=== PATIENT | female | born 1960 | race Caucasian/White ===

== ENCOUNTER 2020-06-03 15:46 | Outpatient (CLI) | payer BC, SELFPAY ==
--- NOTE | 2020-06-03 | CT_ITS ---
WS: [id number] CT ABDOMEN AND PELVIS NONCONTRAST HISTORY: CALCULUS OF KIDNEY TECHNIQUE: Imaging performed through the abdomen and pelvis. Coronal and sagittal reformats are submi tted. All CT scans at [facility] use at least one of these dose optimization techniques: automated exposure control; mA and/or kV adjustment per patient size (includes targeted exams where d ose is matched to clinical indication); or iterative reconstruction. DLP: 1057.9 mGycm COMPARISON: 04/24/2018 Lower thorax: Lung bases are clear. No hiatal hernia. Liver: Normal, no mass or intrahepatic dilatation. Gallbladder: Unremarkable. Pancreas: Normal. Spleen: Normal. Adrenal glands: Normal. Right kidney: No renal obstruction. Several small calcifications within the renal pelvis. The largest in the mid pelvis measures 4 mm. There is no obstruction. RIGHT ureter is normal caliber. Left kidney: Nonobstructing calcifications in the LEFT kidney. 2 adjacent calcifications in the lower pole with a maximum diameter of 5 mm. No ureteral calcification. Mild atherosclerosis with no aneurysm. No free fluid, intraperitoneal air or significant lymphadenopathy. GI tract: Normal appendix. No GI tract obstruction. Again noted is the increased soft tissue mass in the cecum which is nearly isodense to the adjacent colon content. This soft tissue mass has decreased in size of 6.1 to 2.7 cm. There is decrease in size this is probably retained, inspissated fecal mat erial. Abdominal wall: Fat-containing umbilical hernia. Pelvis: Prior hysterectomy. No free fluid or adenopathy. Urinary bladder is not distended. Osseous structures: Degenerative disc disease is moderate at L4-5 and L5-S1. CT/CT kidney stone [id number] IMPRESSION: 1. No renal obstruction or ureteral obstruction. 2. Nonobstructing, bilateral, subcentimeter nephrolithiasis. 3. Normal appendix. 4. Decrease in size of increased soft tissue in the cecum which is probably in spissated fecal material. Decrease in size since 04/24/2018. 5. Mild atherosclerosis aorta.
== END 2020-06-03 15:47 | disposition home or self-care (01) ==
LOC: RADWPI 15:50
PROVIDERS: Family Provider Family Medicine; PCP Family Medicine; Visit Provider Family Medicine
DX: N20.0 Calculus of kidney (principal); I70.0 Atherosclerosis of aorta
CPT/HCPCS: 74176

== ENCOUNTER 2020-06-15 12:13 | Outpatient (CLI) | payer BC, SELFPAY ==
--- NOTE | 2020-06-15 12:30 | XRR_ITS ---
PROCEDURE INFORMATION: Exam: XR Abdomen, 1 View Exam date and time: 06/15/2020 12:29 PM Age: 60 years old Clinical indication: Condition or disease; Other: Stones; Prior surgery; Surgery type: Histo, c section x 2 TECHNIQUE: Imaging protocol: XR of the abdomen. Views: Frontal supine view of the abdomen. 1 View. COMPARISON: CT kidney stone [id number] 06/03/2020 4:05 PM FINDINGS: Gastrointestinal tract: Unremarkable. No bowel dilation. Organs: Small bilateral renal caliceal calculi, largest on the right measuring 4.8 mm (4.6 mm previously). Bones/joints: Bilateral lower lumbar facet primary osteoarthritis. XR/XR KUB [id number] IMPRESSION: Bilateral renal calyceal lithiasis.
== END 2020-06-15 12:14 | disposition home or self-care (01) ==
LOC: RAD 12:15
PROVIDERS: PCP Family Medicine; Visit Provider Nurse Practitioner Family
DX: N20.0 Calculus of kidney (principal)
CPT/HCPCS: 74018; 81001

== ENCOUNTER → 2020-12-30 15:48 | Outpatient (BNVA) | payer OTHER, SELFPAY | PROVIDERS: PCP Family Medicine; Visit Provider Specialist | DX: M65.30 Trigger finger, unspecified finger (principal); M19.041 Primary osteoarthritis, right hand | CPT/HCPCS: 73140 ==

== ENCOUNTER → 2021-01-04 13:56 | Outpatient (BNVA) | payer OTHER, SELFPAY | PROVIDERS: PCP Family Medicine; Visit Provider Specialist | DX: Z01.818 Encounter for other preprocedural examination (principal); M65.30 Trigger finger, unspecified finger | CPT/HCPCS: 87635 ==

== ENCOUNTER → 2021-01-18 13:35 | Outpatient (BNVA) | payer OTHER, SELFPAY | PROVIDERS: PCP Family Medicine; Visit Provider Specialist | DX: Z01.812 Encounter for preprocedural laboratory examination (principal); M65.351 Trigger finger, right little finger | CPT/HCPCS: 87635 ==

== ENCOUNTER 2021-01-22 06:18 | Day surgery (SDC) | payer OTHER, SELFPAY ==
[2021-01-22] VITALS (7 sets, daily range): BP systolic 123–153; BP diastolic 67–86; PULSE 71–85; RESP 14–19; TEMP 36.3–36.4; O2SAT 78–97
--- NOTE | 2021-01-22 07:09 | P.HPUD_ITS ---
Surgery/Procedure H&P Update DATE OF PROCEDURE: January 22, 2021 DATE H&P PERFORMED: 12/30/20 H&P UPDATE INFORMATION: I have reviewed H&P completed within last 30 days, I have examined patient prior to procedure, No changes to prior documentation and H&P is in [facility] EMR on date indicated PREOP DIAGNOSIS: Trigger finger right small finger PLANNED PROCEDURE: Operation Date: 01/22/21 08:05 Proposed Procedures p Little Trigger Finger Release Right 27547 M65.30(Right) - Sophie Flanagan MD Related Problem List Diagnoses (1) Trigger finger, right little finger:
[2021-01-22] MEDS: acetaminophen 1,000 MG/100 ML PIGGYBACK 400 MG IV (07:30)
--- NOTE | 2021-01-22 07:35 | ANES.PREANE2 ---
Pre-Anesthetic Assessment Pre-Anesthetic Assessment: Height/Weight: Height 1.6 m Weight 71.214 kg Temp Pulse Resp BP Pulse Ox 97.4 F L 85 18 149/86 97 01/22/21 06:46 01/22/21 06:46 01/22/21 06:46 01/22/21 06:46 01/22/21 06:46 Preop Diagnosis: Trigger finger right small finger Proposed Procedure: Operation Date: 01/22/21 08:05 Proposed Procedures p Little Trigger Finger Release Right 27738 M65.30(Right) - Sophie Flanagan MD Was Beta Debra taken within 24 hours: N/A Was Clonidine taken within 24 hours: N/A Last intake: Intake Last Liquid Date 01/22/21 Last Liquid Time 00:00 Last Solid Date 01/21/21 Last Solid Time 18:00 Social: Social History: No alcohol and No tobacco Exam: Pre-Anes Outpt Exam: alert, oriented x 3, clear to auscultation bilaterally and regular rate & rhythm Airway: Submandibular: WNL Cervical ROM: WNL MP: 2 Dentition: Full Pulmonary: Pulmonary: Asthma Musc/skel: Musc/skel: Lower Back Pain Neuropsych: Neuropsych: Anxiety and Depression Anesthetic Plan: ASA status: 3 Anesthesia: MAC and Regional (specify below) (Bronson villatoro) Risk of > 500 ml blood loss (7ml/kg in children): No PFSH Anesthesia PFSH: Medical History (Updated 01/01/21 @ 14:29 by Sophie Flanagan MD) Asthma Bilateral kidney stones Hypertension Surgical History H/O section H/O hand surgery H/O: hysterectomy History of back surgery S/P removal of ovarian cyst S/P tonsillectomy Family History Mother , 59 CAD (coronary artery disease) Brother Cancer Kidney cancer Father , 71 Cancer Prostate Social History Smoking and tobacco status: never smoked Alcohol intake: current Alcohol intake frequency: holidays/special occasions only Marital status: Current occupational status: retired Data Anesthesia Cardiac Studies: No Data to Display
[2021-01-22] MEDS: CELEcoxib 200 mg Capsule 400 MG PO (07:36)
[2021-01-22] MEDS: sodium chloride 0.9% 1,000 ML 30 ML IV (07:36)
--- NOTE | 2021-01-22 08:59 | PM.OP ---
Operative Report Date of procedure: January 22, 2021 Pre-op Diagnosis: Trigger finger right small finger Post-op diagnosis: same Post-op Findings: Triggering right small finger Procedure Done: Right Small finger trigger release Pathology: none sent Surgeon: Sophie Flanagan Anesthesia: MAC (With Bronson block) Estimated blood loss (mL): 2 Tourniquet time (min): 30 Tourniquet time: 250 mmHg IV fluids (mL): 500 Urine output (mL): 0 Urine output: No Connell Complications: None Findings: Triggering of the right small finger Condition: stable Disposition: PACU (Then same-day surgery and home) Brief History: This 60-year-old woman presented with complaints of right small finger triggering. She previously had her right ring finger triggering release. She did well from this and wished to proceed with operative intervention regarding the small finger. Risks and complications were discussed with the patient. Consents were signed. Questions were answered. Procedure: Patient was brought to the operating theater. She was placed on the operating room table. A [place] block was administered without difficulty. Patient tolerated it well. Ancef 2 g was administered. A tourniquet was placed high on the arm and was elevated for the [place] block. This followed exsanguination of the arm. Tourniquet time was 30 minutes at 250 mmHg. Surgical pause was performed prior to commencement of the surgical procedure. At the time of the surgical pause we identified the site and side of surgery. We also identified the patient's identity and appropriate administration of IV antibiotics. Following the surgical pause, an incision was made along the distal palmar crease beneath the small finger. Dissection continued through the skin to the subcutaneous tissues using a scalpel. Blunt dissection was then utilized to spread soft tissues and allow access to the A1 get. The A1 get was identified. It was then incised longitudinally and sharply using a knife. This was accomplished without difficulty and atraumatically. Once the A1 get was released, tendons were brought up out of the wound and evaluated. There were no gross masses on the tendon, but there was evidence of trauma from the triggering. Tendons were returned to normal position. We then irrigated the wound and subsequently closed it with 3-0 nylon with an interrupted mattress type suture. Following closure of the wound, the wound was injected with bupivacaine into the subcutaneous tissues as a local anesthetic. Sterile dressing was then placed consisting of OpSite, fluffed fluffs, sterile soft roll, and an Maikel wrap. The patient was returned to recovery in satisfactory condition. She will be discharged home to follow-up with me in the office. There were no complications and no specimens. Associated Problem List Diagnoses (1) Trigger finger, right little finger:
--- NOTE | 2021-01-22 13:06 | ANE.PACU2 ---
Inpatient post-anesthesia follow up: Airway intact: Yes Vital signs: Temperature 97.6 F Pulse Rate 75 Respiratory Rate 18 Blood Pressure 143/72 Pulse Oximetry 78 Oxygen Delivery Me thod Room Air Oxygen Flow Rate Fraction of Inspir ed Oxygen Hydration adequate: Yes Nausea and vomiting: No Pain level: 1 Mental status: Baseline
== END 2021-01-22 10:10 | disposition home or self-care (01) ==
PROVIDERS: PCP Family Medicine; Visit Provider Specialist
PROC: (CPT 26055; principal; 2021-01-22 08:05)
DX: M65.351 Trigger finger, right little finger (principal); J45.909 Unspecified asthma, uncomplicated; F41.9 Anxiety disorder, unspecified; F32.9 Major depressive disorder, single episode, unspecified
CPT/HCPCS: 26055; 96365; J0690; J2250; J2704; J3010; J3490; J7030

== ENCOUNTER 2023-03-15 13:02 | Outpatient (CLI) | payer BC, MEDICAID, SELFPAY ==
--- NOTE | 2023-03-15 13:21 | MM_ITS ---
WS: [id number] BILATERAL 3D TOMOSYNTHESIS DIGITAL SCREENING MAMMOGRAPHY WITH CAD CLINICAL INFORMATION: SCREENING HISTORY: Screening mammogram. No current complaints. COMPARISON: None available TECHNIQUE: Bilateral CC and MLO views. FINDINGS: Scattered fibroglandular densities bilaterally. Slightly spiculated asymmetric density upper outer RI GHT breast measuring 1.4 CM. Recommend RIGHT breast diagnostic mammography with spot compression view s and ultrasound for further evaluation. Benign calcification RIGHT breast. LEFT breast is unremarkable. MM/[place] [id number] IMPRESSION: BI-RADS: 0-Incomplete: Need additional imaging evaluation FOLLOW UP: Need Additional Imaging Recommend RIGHT breast diagnostic mammography with spot compression views and u ltrasound for further evaluation.
== END 2023-03-15 13:03 | disposition home or self-care (01) ==
PROVIDERS: PCP Family Medicine; Visit Provider Family Medicine
DX: Z12.31 Encounter for screening mammogram for malignant neoplasm of breast (principal)
CPT/HCPCS: 77063; 77067

== ENCOUNTER 2023-04-06 12:53 | Outpatient (CLI) | payer BC, MEDICAID, SELFPAY ==
--- NOTE | 2023-04-06 13:10 | MM_ITS ---
WS: [id number] RIGHT 3D TOMOSYNTHESIS DIGITAL MAMMOGRAPHY WITH CAD CLINICAL INFORMATION: ABNORMAL MAMMO HISTORY: Additional views COMPARISON: March 15, 2023 TECHNIQUE: 3 views of the right breast were obtained. FINDINGS: Scattered fibroglandular densities of the right breast. Persistent slightly spiculated asymmetric den sity upper outer RIGHT breast measuring 1.4 CM. This partially compresses out on the spot compression views. Ultrasound is pending. ULTRASOUND BREAST RIGHT TECHNIQUE: Ultrasound right breast focused area of concern. CLINICAL INFORMATION: ABNORMAL MAMMO FINDINGS: Ultrasound RIGHT breast upper-outer quadrant. At the 10:00 position 2 cm from the nipple is a tiny ov oid slightly elongated hypoechoic lesion which may represent a lymph node measuring 7 x 5 x 2 mm. Thi s is probably benign and recommend 6 month follow-up RIGHT diagnostic mammography and ultrasound to c onfirm stability. No other suspicious findings. MM/[place] [id number] IMPRESSION: BI-RADS: 3-Probably Benign FOLLOW UP: 6 Month Follow-up Recommend 6 month follow-up RIGHT diagnostic mammography and ultrasound.
== END 2023-04-06 12:54 | disposition home or self-care (01) ==
PROVIDERS: PCP Family Medicine; Visit Provider Family Medicine
DX: R92.8 Other abnormal and inconclusive findings on diagnostic imaging of breast (principal)
CPT/HCPCS: 76642; 77061; G0279

== ENCOUNTER 2023-12-04 14:34 | Outpatient (CLI) | payer MEDICARE, MEDICAID, SELFPAY ==
--- NOTE | 2023-12-04 14:37 | MM_ITS ---
WS: [id number] RIGHT 3D TOMOSYNTHESIS DIGITAL MAMMOGRAPHY WITH CAD CLINICAL INFORMATION: SCREENING HISTORY: 6-month follow-up COMPARISON: 04/06/2023 TECHNIQUE: 3 views of the right breast were obtained. FINDINGS: Scattered fibroglandular densities of the right breast. Dystrophic calcification anterior RIGHT breas t. Dense parenchymal tissue upper outer RIGHT breast is unchanged in appearance. No other significant changes. Ultrasound is pending. ULTRASOUND BREAST RIGHT TECHNIQUE: Ultrasound right breast focused area of concern. CLINICAL INFORMATION: 6-month follow-up FINDINGS: Ultrasound RIGHT breast at the 10 o'clock position 2 cm from the nipple. There is a described ovoid l esion likely representing a small lymph node is unchanged in appearance measuring 4.5 x 4.5 x 2.3 mm. No other suspicious abnormalities. IMPRESSION: MM/[place] [id number] BI-RADS: 2-Benign FOLLOW UP: 1 Year Follow-up Recommend return to annual screening mammography
--- NOTE | 2023-12-04 15:17 | US_ITS ---
WS: [id number] RIGHT 3D TOMOSYNTHESIS DIGITAL MAMMOGRAPHY WITH CAD CLINICAL INFORMATION: SCREENING HISTORY: 6-month follow-up COMPARISON: 04/06/2023 TECHNIQUE: 3 views of the right breast were obtained. FINDINGS: Scattered fibroglandular densities of the right breast. Dystrophic calcification anterior RIGHT breas t. Dense parenchymal tissue upper outer RIGHT breast is unchanged in appearance. No other significant changes. Ultrasound is pending. ULTRASOUND BREAST RIGHT TECHNIQUE: Ultrasound right breast focused area of concern. CLINICAL INFORMATION: 6-month follow-up FINDINGS: Ultrasound RIGHT breast at the 10 o'clock position 2 cm from the nipple. There is a described ovoid l esion likely representing a small lymph node is unchanged in appearance measuring 4.5 x 4.5 x 2.3 mm. No other suspicious abnormalities. IMPRESSION: US/US breast RT limited* [id number] BI-RADS: 2-Benign FOLLOW UP: 1 Year Follow-up Recommend return to annual screening mammography
== END 2023-12-04 14:35 | disposition home or self-care (01) ==
LOC: RAD 14:34
PROVIDERS: PCP Family Medicine; Visit Provider Family Medicine
DX: R92.8 Other abnormal and inconclusive findings on diagnostic imaging of breast (principal); R92.321 Mammographic fibroglandular density, right breast; R92.1 Mammographic calcification found on diagnostic imaging of breast
CPT/HCPCS: 76642; 77061; G0279

== ENCOUNTER 2025-01-16 13:12 | Outpatient (CLI) | payer MEDICARE, MEDICAID, SELFPAY ==
--- NOTE | 2025-01-16 13:24 | MM_ITS ---
WS: [id number] BILATERAL 3D TOMOSYNTHESIS DIGITAL SCREENING MAMMOGRAPHY WITH CAD CLINICAL INFORMATION: SCREENING HISTORY: Screening mammogram. No current complaints. COMPARISON: 2023 TECHNIQUE: Bilateral CC and MLO views. FINDINGS: Scattered fibroglandular densities bilaterally. No suspicious focal mass, asymmetry, calcifications, or architectural distortion. No evidence of malignancy. Benign lucent centered calcification RIGHT breast MM/MM scr BI tomosynthesis [id number] IMPRESSION: DENSITY: There are scattered areas of fibroglandular density. BI-RADS: 2 - Benign. FOLLOW UP: 1 Year Follow-up Recommend return to annual screening mammography.
--- NOTE | 2025-01-16 13:24 | XR_ITS ---
WS: [id number] SCREENING DEXA SCAN [employer] CLINICAL INFORMATION: ASYMTOMATIC MENOPAUSAL STATE COMPARISON: None. FINDINGS: The L1-L4 bone mineral density measures 1.073 g/cm2. This corresponds to a T score score of -0.9 and Z score of 0.4. Left femoral neck bone mineral density measures 0.770 g/cm2. This corresponds to a T score of -1.9 and Z score of -0.8. Right femoral neck bone mineral density measures 0.755 g/cm2. This corresponds to a T score -2.0of and Z score of -1.0. Mean femoral neck bone mineral density measures 0.762 g/cm2. This corresponds to a T score of -1.9 and Z score of -0.9. XR/XR DEXA axial skeleton* [id number] IMPRESSION: Normal bone mineralization lumbar spine. Osteopenia femoral necks. Patient's FRAX calculated 10 year probability for major osteoporotic fracture i s 11.8% and osteoporotic hip fracture is 2.1%.
== END 2025-01-16 13:13 | disposition home or self-care (01) ==
LOC: RAD 13:17
PROVIDERS: PCP Family Medicine; Visit Provider Family Medicine
DX: Z12.31 Encounter for screening mammogram for malignant neoplasm of breast (principal); Z78.0 Asymptomatic menopausal state; R92.323 Mammographic fibroglandular density, bilateral breasts; R92.1 Mammographic calcification found on diagnostic imaging of breast; M85.88 Other specified disorders of bone density and structure, other site
CPT/HCPCS: 77063; 77067; 77080

== ENCOUNTER → 2025-02-19 14:13 | Outpatient (BNVA) | payer MEDICARE, MEDICAID, SELFPAY | PROVIDERS: PCP Family Medicine; Visit Provider Nurse Practitioner Family | DX: L82.1 Other seborrheic keratosis (principal); D22.39 Melanocytic nevi of other parts of face; L57.8 Other skin changes due to chronic exposure to nonionizing radiation; L81.4 Other melanin hyperpigmentation; L30.8 Other specified dermatitis; I78.8 Other diseases of capillaries; L82.0 Inflamed seborrheic keratosis; R58 Hemorrhage, not elsewhere classified; Z78.9 Other specified health status; R20.8 Other disturbances of skin sensation; L29.89 Other pruritus; L53.8 Other specified erythematous conditions | CPT/HCPCS: 17000; 17110; 99204 ==

== ENCOUNTER → 2025-05-01 13:31 | Outpatient (BNVA) | payer MEDICARE, MEDICAID, SELFPAY | PROVIDERS: PCP Family Medicine; Visit Provider Nurse Practitioner Family | DX: M71.341 Other bursal cyst, right hand (principal); L82.1 Other seborrheic keratosis; L57.8 Other skin changes due to chronic exposure to nonionizing radiation; L81.4 Other melanin hyperpigmentation; D22.5 Melanocytic nevi of trunk; D48.5 Neoplasm of uncertain behavior of skin | CPT/HCPCS: 11102; 99213 ==

== ENCOUNTER 2025-05-05 13:35 | Outpatient (CLI) | payer MEDICARE, MEDICAID, SELFPAY ==
--- NOTE | 2025-05-05 13:46 | XR_ITS ---
WS: [id number] XR cervical spine 4-5V [id number] REASON FOR EXAM: RADICULOPATHY,CERVICAL REGION/ANESTINESIA OF SKIN FINDINGS: Reversal of the normal lordosis in the lower cervical spine. No significant vertebral body compression deformity or focal lesion. Mild narrowing of the C4-C5 C5-C6 and C6-C7 disc spaces with mild to moderate posterior and anterior osteophytosis. 2 mm of anterolisthesis of C4 on C5. 1 mm of anterolisthesis of C5 on C6. Moderate degenerative arthropathy in the facet joints C4-C7. Moderate bilateral narrowing of the neuroforamina by uncinate osteophytosis C6-C7. Moderate calcified plaque in the left carotid artery. XR/XR cervical spine 4-5V [id number] IMPRESSION: Moderate degenerative spondylosis of the cervical spine as above. Calcified left carotid plaque.
== END 2025-05-05 13:36 | disposition home or self-care (01) ==
PROVIDERS: PCP Nurse Practitioner Family; Visit Provider Nurse Practitioner Family
DX: M54.12 Radiculopathy, cervical region (principal); R20.0 Anesthesia of skin; M47.892 Other spondylosis, cervical region; I65.22 Occlusion and stenosis of left carotid artery; R93.7 Abnormal findings on diagnostic imaging of other parts of musculoskeletal system; M25.78 Osteophyte, vertebrae; M48.02 Spinal stenosis, cervical region
CPT/HCPCS: 72050

== ENCOUNTER → 2025-05-07 14:49 | Outpatient (BNVA) | payer MEDICARE, MEDICAID, SELFPAY | PROVIDERS: PCP Nurse Practitioner Family; Visit Provider Physician Assistant | DX: G56.01 Carpal tunnel syndrome, right upper limb (principal); M67.441 Ganglion, right hand | CPT/HCPCS: 73130; 99213 ==

== ENCOUNTER 2025-05-16 14:41 | Outpatient (CLI) | payer MEDICARE, MEDICAID, SELFPAY ==
--- NOTE | 2025-05-16 14:48 | USCV_ITS ---
Raiza Huffman Age: 64 Gender: F : 1960 Exam Date: 05/16/2025 15:01 Ordering Phys: Lida Sharma Technologist: MOY Exam Location: [facility] [place] Indication: stenosis Risk Factors: Previous Vascular Surgery: Right Brachial BP: / Left Brachial BP: / Right Left Velocity (cm/s) Spectral Plaque Velocity (cm/s) Spectral Plaque Syst/Diast Broadening Syst/Diast Broadening 67.60/ 14.00 Prox CCA 68.20 / 18.50 76.30/ 18.70 Mid CCA 91.10 / 23.90 74.60/ 20.20 Distal CCA 83.80 / 27.20 49.10/ 10.30 Prox ICA 65.00 / 21.20 41.60/ 12.00 Mid ICA 48.00 / 18.00 34.00/ 11.00 Distal ICA 56.20 / 18.50 92.50 ECA 72.80 0.70 ICA/CCA 0.80 Antegrade Vertebral Antegrade 24.10/ 6.00 cm/s 32.60/ 10.10 cm/s Tri Subclavian Tri 81.10 93.70 CONCLUSIONS Right ICA stenosis <50%. Moderate atheromatous plaque right carotid bulb/ICA. Left ICA stenosis <50%. Moderate atheromatous plaque left carotid bulb/ICA. Intimal thickening in the common carotid arteries and internal carotid arteries bilaterally. Normal antegrade Doppler flow noted in the right vertebral artery. Normal antegrade Doppler flow noted in the left vertebral artery. Storm Trinidad MD (Electronically Signed) Final Date: 16 May 2025 17:48 S
== END 2025-05-16 14:42 | disposition home or self-care (01) ==
LOC: RAD 14:43
PROVIDERS: PCP Nurse Practitioner Family; Visit Provider Nurse Practitioner Family
DX: I65.23 Occlusion and stenosis of bilateral carotid arteries (principal); I66.12 Occlusion and stenosis of left anterior cerebral artery
CPT/HCPCS: 93880

== ENCOUNTER 2025-05-21 13:38 | Outpatient (CLI) | payer MEDICARE, MEDICAID, SELFPAY ==
--- NOTE | 2025-05-21 13:53 | MR_ITS ---
WS: [id number] MRI CERVICAL SPINE NONCONTRAST HISTORY: CERVICALGIA/ANESTHESIA OF SKIN COMPARISON: None available. Technique: Multiplanar, multisequence noncontrast imaging of the cervical spine. C4 anterolisthesis by 2.7 mm. Disc spaces are mildly narrowed and desiccated. No fracture. Signal within the cervical cord is normal. Visualized posterior fossa is unremarkable. Mild ectopia the cerebellar tonsils. C2-C3: Normal. C3-C4: Mild RIGHT foraminal stenosis. C4-C5: Annular disc bulging with bilateral facet arthritis. Small amount of fluid in the RIGHT facet joint. Moderate RIGHT and mild LEFT foraminal stenosis. C5-C6: Central to LEFT paracentral disc protrusion effacing CSF. Mild effacement of ventral CSF. Mild central and foraminal stenosis. C6-C7: Mild annular disc bulging. Moderate size bilateral disc osteophyte complexes, LEFT greater than RIGHT. Severe LEFT and moderate RIGHT foraminal stenosis. C7-T1: Normal. Central disc protrusions at T2-3 and T3-4. Bilateral foraminal disc protrusions at T2-3. Paraspinal soft tissue are normal. MR/MR cervical spin wo con* [id number] IMPRESSION: 1. C4 anterolisthesis by 2.7 mm. 2. C5-6: Central to LEFT paracentral disc protrusion effacing CSF. Mild centra l and foraminal stenosis. 3. C6-7: Bilateral foraminal disc osteophyte complexes resulting in severe LEF T and moderate RIGHT foraminal stenosis. 4. Moderate RIGHT and mild LEFT foraminal stenosis at C4-5. 5. Additional small disc protrusions at T2-3 and T3-4.
== END 2025-05-21 13:39 | disposition home or self-care (01) ==
LOC: RAD 13:38
PROVIDERS: PCP Nurse Practitioner Family; Visit Provider Nurse Practitioner Family
DX: M48.02 Spinal stenosis, cervical region (principal); M46.92 Unspecified inflammatory spondylopathy, cervical region; M50.223 Other cervical disc displacement at C6-C7 level; M25.78 Osteophyte, vertebrae
CPT/HCPCS: 72141

== ENCOUNTER → 2025-06-24 12:08 | Outpatient (BNVA) | payer MEDICARE, MEDICAID, SELFPAY | PROVIDERS: PCP Nurse Practitioner Family; Referring Provider Student in an Organized Health Care Education/Training Program; Visit Provider Specialist | DX: G56.01 Carpal tunnel syndrome, right upper limb (principal); M65.351 Trigger finger, right little finger | CPT/HCPCS: 95911 ==

== ENCOUNTER → 2025-07-15 14:03 | Outpatient (BNVA) | payer MEDICARE, MEDICAID, SELFPAY | PROVIDERS: PCP Nurse Practitioner Family; Visit Provider Student in an Organized Health Care Education/Training Program | DX: M67.441 Ganglion, right hand (principal); G56.01 Carpal tunnel syndrome, right upper limb | CPT/HCPCS: 99214 ==

== ENCOUNTER 2025-08-14 07:05 | Day surgery (SDC) | payer MEDICARE, MEDICAID, SELFPAY ==
--- NOTE | 2025-08-13 13:14 | ANES.PREANE2 ---
Pre-Anesthetic Assessment Height/Weight: Height 5 ft 4 in Preop Diagnosis: Carpal tunnel syndrome Operation Date: 08/14/25 08:00 Proposed Procedures p Carpal Tunnel Release(Right) - Mehran Dos Santos DO s right index finger distal interphalangeal joint mucous cyst excision(Right) - Mehran Dos Santos DO s dorsal osteophyte ostectomy(Right) - Mehran Dos Santos DO s right dorsal thumb ganglion cyst excision(Right) - Mehran Dos Santos DO Was Beta Debra taken within 24 hours: N/A Was Clonidine taken within 24 hours: N/A Social No alcohol and No tobacco Exam alert, oriented x 3, clear to auscultation bilaterally and regular rate & rhythm Airway Submandibular: within normal limits Cervical ROM: within normal limits Mallampati: Class II Dentition: full Anesthetic Plan ASA status: 3 Anesthesia: MAC Other: No prior issues with anesthesia NPO since yesterday evening History of hypertension on amlodipine History of GERD on Protonix Denies any pulmonary issues Plan for MAC anesthesia with local via surgeon Medications/Allergies Home Medications ?Medication ?Instructions ?Recorded ?Confirmed ?Last Taken ?Type amlodipine 5 mg tablet 5 mg PO DAILY 06/15/20 08/14/25 08/13/25 History clonazepam 0.5 mg tablet (Klonopin) 0.5 mg PO TID 06/15/20 08/14/25 08/14/25 History montelukast 10 mg tablet 10 mg PO DAILY 06/15/20 08/14/25 08/13/25 History albuterol 90 mcg/actuation aerosol 90 mcg inhalation PRN PRN Wheezing 01/21/21 08/13/25 08/12/25 History inhaler hydrocodone 5 mg-acetaminophen 325 1 tab PO Q4H PRN pain #20 tabs 01/22/21 08/13/25 08/12/25 Rx mg tablet ([place]) estradiol 0.01% (0.1 mg/gram) 1 appful vaginal .WEEKLY 05/07/25 08/13/25 08/12/25 History vaginal cream pantoprazole 40 mg tablet,delayed 40 mg PO PRN PRN Acid Reflux 05/07/25 08/14/25 08/13/25 History release tamsulosin 0.4 mg capsule 0.4 mg PO PRN PRN kidney stone 05/07/25 08/14/2525 History tizanidine 4 mg tablet 4 mg PO PRN PRN muscle spasms 05/07/25 08/14/25 08/13/25 History clobetasol 0.05 % topical ointment 1 applic topical PRN PRN Itching 08/13/25 08/13/25 08/12/25 History levocetirizine 5 mg tablet (Xyzal) 5 mg PO DAILY 08/13/25 08/14/25 08/13/25 History hydrocodone 5 mg-acetaminophen 325 1 tab PO Q6H PRN pain 5 days #20 08/14/25 Unknown Rx mg tablet tabs Allergies Allergy/AdvReac Type Severity Reaction Status Date / Time latex Allergy ADR-Itching Verified 08/13/25 11:12 ondansetron (From Zofran) Allergy Hives Verified 08/13/25 11:12 promethazine Allergy dizzy/ Verified 08/13/25 11:12 hallucination PFSH Anesthesia Medical History (Updated 07/19/25 @ 23:35 by Mehran Dos Santos DO) Asthma Hypertension Bilateral kidney stones Surgical History H/O: hysterectomy H/O section History of back surgery S/P tonsillectomy H/O hand surgery S/P removal of ovarian cyst Family History Mother , 59 CAD (coronary artery disease) Brother Cancer Kidney cancer Father , 71 Cancer Prostate Social History Smoking and tobacco/nicotine status: never used tobacco/nicotine Alcohol intake: current Alcohol intake frequency: holidays/special occasions only Substance/Drug Use: never Marital status: Current occupational status: retired
[2025-08-14] VITALS (9 sets, daily range): BP systolic 107–138; BP diastolic 57–80; PULSE 59–84; RESP 16–18; TEMP 36.1–36.4; O2SAT 90–98; BMI 28.3
[2025-08-14] MEDS: acetaminophen 1,000 MG/100 ML PIGGYBACK 400 MG IV (07:47)
--- NOTE | 2025-08-14 08:03 | W.PM.OPSUD ---
Surgery/Procedure H&P Update DATE OF PROCEDURE: August 14, 2025 DATE H&P PERFORMED: 07/15/25 H&P UPDATE INFORMATION: I have reviewed H&P completed within last 30 days, I have examined patient prior to procedure and No changes to prior documentation PREOP DIAGNOSIS: right carpal tunnel syndrome, right DIP joint mucous cyst and dorsal osteop PRIMARY INDICATION FOR PROCEDURE: Right carpal tunnel syndrome, right DIP joint mucous cyst and dorsal osteophyte prominence, right dorsal thumb ganglion cyst excision PLANNED PROCEDURE: Operation Date: 08/14/25 09:15 Proposed Procedures p Carpal Tunnel Release(Right) - DO kristal Gastelum right index finger distal interphalangeal joint mucous cyst excision(Right) - DO kristal Gastelum dorsal osteophyte ostectomy(Right) - DO kristal Gastelum right dorsal thumb ganglion cyst excision(Right) - Mehran Dos Santos DO
[2025-08-14] MEDS: ceFAZolin 2,000 MG in sodium chloride 0.9% (plus) 50 ML 100 MG IV (08:34)
[2025-08-14] MEDS: ROPivacaine 0.5% SDV 30 mL 50 MG INJECTION (09:17)
[2025-08-14] MEDS: lidocaine-epi 1% 20 mL INJ 5 ML INJECTION (09:19)
--- NOTE | 2025-08-14 09:36 | P.BOP_ITS ---
Date of Procedure: [08/14/2025] Surgeon: Mehran Dos Santos DO Osha Inspector(s): Nick Dos Santos PA-C Procedure(s) performed: Right carpal tunnel release Right thumb dorsal mass/cyst excision Right index finger mucous cyst excision and dorsal osteophyte ostectomy Findings of the procedure(s): Underwent procedure as planned out issues or complications taken recovery stable condition. Splint applied to the right index finger. Estimated blood loss: 10 mL Specimen(s) removed: Right thumb dorsal mass/cyst excised and sent for specimen, right index finger mucous cyst and dorsal osteophyte ostectomy sent for specimen Post-operative diagnosis: Right carpal tunnel syndrome right thumb dorsal mass/cyst, right index finger mucous cyst with dorsal osteophyte prominence
--- NOTE | 2025-08-14 09:42 | PM.OP ---
Operative Report Date of procedure: August 14, 2025 Surgeon: Mehran Dos Santos DO Us Administrative Law Judge: Nick Dos Santos PA-C: PA was necessary for assistance in this case with hand positioning to execute the procedure, retraction and protection of neurovascular structures as well as to assist with wound closure and dressing application. Procedure: Preop Diagnosis: Right Carpal Tunnel Syndrome Right thumb dorsal mass/cyst Right index finger mucous cyst and dorsal osteophyte prominence Post-op diagnosis: Same Procedure done: Right carpal tunnel release Right thumb dorsal mass/cyst excision Right index finger mucous cyst excision and dorsal osteophyte ostectomy Surgeon: Mehran Dos Santos DO Anesthesia: MAC (Local) Estimated blood loss: [10]mL Tourniquet time [30]minutes IV fluids: See anesthesia record Complications: None Findings: See operative report narrative Condition: stable Disposition: same day Brief History: Patient is a pleasant [65]year-old [female] with right carpal tunnel syndrome, right thumb dorsal cyst/mass, right index finger mucous cyst with dorsal osteophyte prominence. Patient has been worked up in the outpatient setting findings and physical examination consistent with this. Patient nerve conduction studies consistent with carpal tunnel syndrome. We detailed out patient's risk benefits complication alternatives with surgical and nonsurgical treatment options. Through shared decision making, patient agrees to proceed with surgical intervention of the right carpal tunnel release, right thumb dorsal cyst/mass excision, right index finger mucous cyst excision with dorsal osteophyte ostectomy. Patient understands and agrees with current plan. All questions answered. Patient elects to proceed with surgical intervention Procedure: Patient seen and evaluated in the preoperative holding area. Consent was reviewed and signed with patient. Correct extremity was marked. Patient was seen evaluated by the anesthesia department once cleared for surgery was brought back to the operative suite. Patient was kept on [facility] in supine position all bony prominences were well-padded patient properly secured to the bed. Right upper extremity was then placed onto an armboard. A nonsterile tourniquet was applied to the Right upper arm. Patient underwent anesthesia per the anesthesia department. Patient's Right upper extremity was then prepped and draped in standard orthopedic fashion. Final timeout performed. Patient received appropriate preoperative antibiotics. Under sterile aseptic technique patient received local anesthesia over the preplanned carpal tunnel incision site. As well as additional digital block to the right thumb index finger Esmarch was used to exsanguinate the Right upper extremity and tourniquet was insufflated to 250 mmHg. A standard mini open Right carpal tunnel incision was made. Starting distally at Frances's cardinal line in line with the fourth ray extending proximally distal to the wrist crease centered over the carpal tunnel. Sharp scalpel incision was made through skin and subcutaneous tissue. Self-retaining retractor was placed and the palmar fascia was identified. This was then split longitudinally and direct visualization of the transverse carpal ligament was then made. I then utilizing scalpel feathered through the transverse carpal ligament until I entered the floor of the transverse carpal tunnel ligament into the carpal tunnel. Next I switched to dissection scissors and completed my release of the transverse carpal ligament distally with care to protect the recurrent motor branch. I completely released into the palmar fat and until no entrapment was noted distally. Care was made to protect the superficial palmar arch during my distal dissection. Next I utilized a nasal speculum placed on top of the transverse carpal ligament and utilize this to retract the subcutaneous fat and tissue and under direct loupe magnification was able to identify the transverse carpal ligament. Next I then protected the contents of the carpal tunnel and subsequently utilizing dissection scissors under loupe magnification completely released the transverse carpal ligament proximally into the antebrachial fascia. Care was made to protect the palmar cutaneous branch by keeping my scissors curved ulnarly. Once completely released, I then placed my Martin and had appropriate decompression of the carpal tunnel proximally as well as distally. I then inspected the contents of the carpal tunnel which showed an hourglass shape of the median nerve showing its compression. No masses were noted. Tendons appeared healthy. Wound was then thoroughly irrigated. Next my attention was turned towards the right dorsal thumb cyst/mass. This is on the ulnar and dorsal aspect near the IP joint of the right thumb the small mass was marked out and then subsequently longitudinal incision was made. I switched spread with lightly dissection scissors and then subsequently immediately encountered a firm mass/loose appearing body that immediately came out there is no pseudocapsule or deep attachments to this this was then subsequent removed and sent for specimen this was thoroughly irrigated and wet Ray-Nancy placed in wound bed. I then subsequently performed the right index finger mucous cyst excision. At this point in time I performed a standard H incision as patient had prominent osteophyte and mucous cyst on the dorsal aspect of the index finger. Tourniquet deflated. Hemostasis satisfactory with bipolar standard approach was then made through skin only and then utilized [place] blade to mobilize full-thickness skin flaps coming down directly over the extensor mechanism. I then identified the mucous cyst on the radial and ulnar aspects these were subsequently excised and sent for specimen as well as utilizing a rongeur to remove the prominent dorsal osteophytes I then created a window utilizing a Martin to mobilize underneath the tendon and was able to use a rongeur to remove any undersurface prominent osteophytes without detaching the extensor tendon. I then utilized a small hand rasp to smooth out these edges to eliminate any of the dorsal osteophyte prominences. These were all sent for specimen and then subsequently wound was then thoroughly irrigated. Once again neurovascular structures as well as the tendon was protected throughout the procedure. This point time tourniquet was deflated. Thoroughly irrigation performed. I maintain exact hemostasis with bipolar electrocautery on all the incision sites. I then closed the incision with interrupted nylon stitches. Xeroform 4 x 4's and a bulky soft dressing was applied with a splint to the right index finger. Patient was then awakened from anesthesia and taken to PACU in stable condition. Patient tolerated procedure without complications. Disposition: Patient taken to PACU in stable condition recovering well. Dressing clean dry and intact. Patient will receive appropriate discharge instructions as well as pain medication postoperatively. Patient to follow-up with me in the office in 2 weeks. Patient understands if any questions or concerns may contact the office.
--- NOTE | 2025-08-14 10:08 | PM.PACU ---
PACU note Narrative: Patient is a 65-year-old female that just underwent a right carpal tunnel release. Patient transferred to PACU in stable condition. Pain is well controlled. Dressing on hand is dry and in place. Patient's fingers are warm and well-perfused. Patient can wiggle fingers. normal cap refill under 2 seconds. Patient has normal elbow range of motion. Sensation to hands intact. Exam: awake Disposition: discharged
--- NOTE | 2025-08-14 10:31 | ANE.PACU2 ---
Inpatient post-anesthesia follow up: Airway intact: Yes Vital signs: Temperature 97.2 F Pulse Rate 59 Respiratory Rate 17 Blood Pressure 127/80 Pulse Oximetry 96 Oxygen Delivery Me thod Room Air Oxygen Flow Rate Fraction of Inspir ed Oxygen Hydration adequate: Yes Nausea and vomiting: No Pain level: 1 Mental status: Baseline
== END 2025-08-14 11:30 | disposition home or self-care (01) ==
PROVIDERS: PCP Nurse Practitioner Family; Visit Provider Student in an Organized Health Care Education/Training Program
PROC: (CPT 64721; principal; 2025-08-14 09:15)
PROC: (CPT 64721; 2025-08-14 09:15)
PROC: (CPT 64721; 2025-08-14 09:15)
PROC: (CPT 64721; 2025-08-14 09:15)
DX: G56.01 Carpal tunnel syndrome, right upper limb (principal); R22.31 Localized swelling, mass and lump, right upper limb; M71.341 Other bursal cyst, right hand; M25.741 Osteophyte, right hand; K21.9 Gastro-esophageal reflux disease without esophagitis; I10 Essential (primary) hypertension; Z79.891 Long term (current) use of opiate analgesic; J45.909 Unspecified asthma, uncomplicated
CPT/HCPCS: 64721; 26236; 26160 ×2; 88304; 88311; J0131; J0690; J1100; J1885; J2250; J2405; J2704; J2795; J3010; J7030; J9999

== ENCOUNTER → 2025-08-27 07:58 | Outpatient (BNVA) | payer MEDICARE, MEDICAID, SELFPAY | PROVIDERS: PCP Nurse Practitioner Family; Visit Provider Physician Assistant | DX: Z98.890 Other specified postprocedural states (principal) | CPT/HCPCS: 99024 ==

== ENCOUNTER 2025-09-04 13:52 | Outpatient (RCR) | payer MEDICARE, MEDICAID, SELFPAY | END 2025-09-05 23:59 | disposition home or self-care (01) | LOC: SOT 13:52 | PROVIDERS: PCP Nurse Practitioner Family; Visit Provider Physician Assistant | DX: M67.441 Ganglion, right hand (principal); G56.01 Carpal tunnel syndrome, right upper limb | CPT/HCPCS: 97110; 97166; 97530 ==

== ENCOUNTER 2025-09-06 05:00 | Outpatient (RCR) | payer MEDICARE, MEDICAID, SELFPAY | END 2025-10-05 23:59 | disposition home or self-care (01) | LOC: SOT 05:00 | PROVIDERS: PCP Nurse Practitioner Family; Visit Provider Physician Assistant | DX: M67.441 Ganglion, right hand (principal); G56.01 Carpal tunnel syndrome, right upper limb | CPT/HCPCS: 97022; 97110; 97140 ==

== ENCOUNTER 2025-10-06 06:30 | Outpatient (RCR) | payer MEDICARE, MEDICAID, SELFPAY | END 2025-11-05 23:59 | disposition home or self-care (01) | LOC: SOT 06:30 | PROVIDERS: PCP Nurse Practitioner Family; Visit Provider Student in an Organized Health Care Education/Training Program | DX: M67.441 Ganglion, right hand (principal); G56.01 Carpal tunnel syndrome, right upper limb | CPT/HCPCS: 97022; 97110; 97165 ==

== ENCOUNTER → 2025-10-08 09:25 | Outpatient (BNVA) | payer MEDICARE, MEDICAID, SELFPAY | PROVIDERS: PCP Nurse Practitioner Family; Visit Provider Student in an Organized Health Care Education/Training Program | DX: M67.441 Ganglion, right hand (principal); Z98.890 Other specified postprocedural states | CPT/HCPCS: 99213 ==